=== PATIENT | female | born 1985 | race Caucasian/White ===

== ENCOUNTER 2023-07-20 08:00 | Outpatient (CLI) | payer OTHER ==
[2023-07-21 16:25] LABS: BACTERIAL VAGINOSIS DNA NEGATIVE (NEGATIVE); CANDIDA GLABRATA DNA NEGATIVE (NEGATIVE); CANDIDA GROUP DNA POSITIVE (NEGATIVE); CANDIDA KRUSEI DNA NEGATIVE (NEGATIVE); TRICHOMONAS VAGINALIS DNA NEGATIVE (NEGATIVE)
== END 2023-07-20 23:59 | disposition home or self-care (01) ==
LOC: LAB 08:00
PROVIDERS: ATTEND Family Medicine
DX: B37.9 Candidiasis, unspecified (principal)
CPT/HCPCS: 81514

== ENCOUNTER 2023-09-12 09:56 | Outpatient (CLI) | payer OTHER ==
[2023-09-12 19:08] LABS: THYROID STIMULATING HORMONE 1.69 uIU/mL (0.34-5.60)
[2023-09-12 19:13] LABS: PROLACTIN 8.98 ng/mL
[2023-09-14 23:08] LABS: ESTRADIOL 63.4 pg/mL (.)
== END 2023-09-12 09:57 | disposition home or self-care (01) ==
LOC: LAB.N 09:56
PROVIDERS: ATTEND Obstetrics & Gynecology
DX: N97.8 Female infertility of other origin (principal)
CPT/HCPCS: 36415; 82627; 82670; 83001; 83002; 83498; 84146; 84403; 84443

== ENCOUNTER 2023-09-30 19:23 | Outpatient (CLI) | payer OTHER ==
--- NOTE | 2023-10-01 08:09 | Ultrasound Report ---
PROCEDURE: Pelvic w/Transvaginal INDICATIONS: FEMALE INFERTILITY TECHNIQUE: Real-time scanning was performed of the pelvic organs, with image documentation. Additional endovagi nal scanning was necessary due to incomplete visualization of the adnexal and endometrial structures by transabdominal scanning. COMPARISON: None. FINDINGS: Uterus: Uterus is anteverted and normal in size at 9.2 x 4.7 x 6.4 cm. The myometrium is heterogene ous. The endometrium measures 11.2 mm in combined thickness. The endometrium is heterogeneous with complex cystic structure measuring 5 mm. Ovaries: The right ovary is not well seen and measures 2.5 x 1.3 x 1.1 cm, with a calculated ovarian volume of 0.5 cc. There is a 1.1 cm cyst.. The left ovary measures 3.9 x 1.9 x 4.0 cm, with a calcu lated ovarian volume of 15.5 cc. Thick-walled cyst within the left ovary measuring 2.1 x 2.0 x 1.9 cm and 2.0 x 1.5 x 2.5 cm. The ovaries have a normal sonographic appearance. Less than 12 follicles ca n be seen in each ovary. No adnexal masses are seen. No cystic lesions measuring greater than 3 cm. Other: No pathologic free abdominal or pelvic fluid. IMPRESSION: 1.Endometrium is prominent measuring 11 mm with a complex cystic structure measuring 5 mm. Recommend short-term follow-up ultrasound in 6-12 weeks to assess stability or resolution. 2.Thick-walled left ovarian cysts measuring up to 2.5 cm, likely benign and can be further evaluated on follow-up ultrasound. Reviewed by: John Cisse MD on 10/01/2023 8:08 AM PST Approved by: John Cisse MD on 10/01/2023 8:08 AM PST Station ID: [id number]
== END 2023-09-30 19:24 | disposition home or self-care (01) ==
LOC: DI 19:23
PROVIDERS: ATTEND Obstetrics & Gynecology
DX: N83.202 Unspecified ovarian cyst, left side (principal); N83.201 Unspecified ovarian cyst, right side; N97.8 Female infertility of other origin; N85.8 Other specified noninflammatory disorders of uterus

== ENCOUNTER 2023-11-17 07:43 | Day surgery (SDC) | payer OTHER ==
[~2023-11-17 07:43] MED LIST: ACETAMINOPHEN 325 MG TABLET PO ONE; LIDOCAINE-PF 2% 10 ML AMP SUBQ ONE; MIDAZOLAM 2 MG/2 ML VIAL ONE; PROPOFOL 200 MG/20 ML VIAL IVP ONE; fentaNYL 100 MCG/2 ML VIAL ONE
[2023-11-17] MEDS: LACTATED RINGERS 1,000 ML IV ONE (08:02)
[2023-11-17 08:13] LABS: HCG UR QUAL NEGATIVE
[2023-11-17 08:25] VITALS: O2SAT 100
[2023-11-17 08:27] LABS: BASOPHILS % (AUTO) 0.5 %; EOSINOPHILS # (AUTO) 0.1 10^3/uL (0.0-0.7); EOSINOPHILS % (AUTO) 1.3 %; HCT - HEMATOCRIT 40.1 % (37.0-47.0); HGB - HEMOGLOBIN 13.3 g/dL (12.0-16.0); LYMPHOCYTES # (AUTO) 1.7 10^3/uL (1.5-3.5); LYMPHOCYTES % (AUTO) 31.3 %; MEAN CORPUSCULAR HEMOGLOBIN 30.7 pg (27.0-31.0); MEAN CORPUSCULAR HGB CONC 33.2 g/dL (32.0-36.0); MEAN CORPUSCULAR VOLUME 92.6 fL (81.0-99.0); MEAN PLATELET VOLUME 9.1 fL (7.9-10.8); MONOCYTES # (AUTO) 0.4 10^3/uL (0.0-1.0); MONOCYTES % (AUTO) 7.3 %; NEUTROPHILS # (AUTO) 3.3 10^3/uL (1.5-6.6); NEUTROPHILS % (AUTO) 59.2 %; PLT - PLATELET COUNT 193 10^3/uL (130-450); RED BLOOD COUNT 4.33 10^6/uL (4.20-5.40); WHITE BLOOD COUNT 5.5 x10^3/uL (4.8-10.8)
--- NOTE | 2023-11-17 08:42 | ANESTHESIA ---
Pre-Anesthesia VS, & Labs - Diagnosis infertility, uterine polyp - Procedure D/C, POLYPECTOMY Vital Signs: Temp Pulse Resp BP Pulse Ox O2 Flow Rate 36.3 C L 73 18 120/78 100 11/17/23 08:01 11/17/23 08:01 11/17/23 08:01 11/17/23 08:01 11/17/23 08:01 Height: 5 ft 4 in Weight (kg): 78.2 kg Body Mass Index: 29.5 BMI Classification: Overweight - Is Patient ?: No - Lab Results Current Lab Results: Laboratory Tests 11/17/23 08:14: WBC 5.5, RBC 4.33, Hgb 13.3, Hct 40.1, MCV 92.6, MCH 30.7, MCHC 33.2, RDW 12.0, Plt Count 193, MPV 9.1, Neut # (Auto) 3.3, Lymph # (Auto) 1.7, [place] # (Auto) 0.4, Eos # (Auto) 0.1, Baso # (Auto) 0.0, Absolute Nucleated RBC 0.00, Nucleated RBC % 0.0 Fish Bones: 11/17/23 08:14 Home Medications and Allergies Home Medications: Ambulatory Orders Albuterol Sulfate [Proventil Hfa] 1 puffs PO Q4HR PRN 11/10/23 FLUoxetine [PROzac] 10 mg PO DAILY 11/10/23 Fexofenadine [Sneha] 60 mg PO DAILY 11/10/23 Pnv 119/Iron Fum/Folic Acid [ 19 Tablet] 1 tab PO DAILY 11/10/23 Albuterol Sulfate [Proventil Hfa] 1 puffs PO Q4HR PRN 11/10/23 FLUoxetine [PROzac] 10 mg PO DAILY 11/10/23 Fexofenadine [Sneha] 60 mg PO DAILY 11/10/23 Pnv 119/Iron Fum/Folic Acid [ 19 Tablet] 1 tab PO DAILY 11/10/23 Allergies/Adverse Reactions: Allergies Allergy/AdvReac Type Severity Reaction Status Date / Time No Known Drug Allergies Allergy Verified 11/10/23 14:03 Anes History & Medical History - Anesthetic History Anesthesia Complications: reports: No previous complications (REPORTED SOME H YPOTENSION AFTER A NASAL SURGERY, UNSURE OF ETIOLOGY) Family history of Anesthesia Complications: Denies Family history of Malignant Hyperthermia: Denies (OCCASIONAL INHALER) - Medical History Cardiovascular: reports: None Pulmonary: reports: Asthma Gastrointestinal: reports: None, Other Urinary: reports: None Musculoskeletal: reports: None Endocrine/Autoimmune: reports: None Skin: reports: None Smoking Status: Never smoker Psychosocial: reports: No issues indicated - Surgical History Gynecologic: reports: section Results - EKG Results EKG Comparison: Reviewed EKG Exam General: Alert Dental: WNL Mouth Openin Fingerbreadth Neck Mobility: Normal Mallampati classification: II Thyromental Distance: 4-6 cm Respiratory: Lungs clear Cardiovascular: Regular rate Plan Anesthesia Type: General Consent for Procedure(s) Verified and Reviewed: Yes Code Status: Attempt Resuscitation ASA classification: 2-Mild systemic disease Is this case an emergency?: No
[2023-11-17] MEDS ORDERED: ONDANSETRON 4 MG/2 ML VIAL IVP PRN ×2 (08:44→09:41)
[2023-11-17] MEDS ORDERED: ePHEDrine 50 MG/ML VIAL IVP PRN (08:44)
[2023-11-17] MEDS ORDERED: NALOXONE 0.4 MG/ML VIAL IVP PRN (08:44)
[2023-11-17] MEDS ORDERED: HYDROmorphone 0.5 MG/0.5 ML SYRINGE IVP PRN (08:44)
[2023-11-17] MEDS ORDERED: ATROPINE ABBOJECT 1 MG/10 ML SYRINGE IVP PRN (08:44)
[2023-11-17] MEDS ORDERED: fentaNYL 100 MCG/2 ML VIAL IVP PRN (08:44)
[2023-11-17] MEDS ORDERED: LACTATED RINGERS 1,000 ML IV SCH (09:00)
[2023-11-17] MEDS ORDERED: ONDANSETRON 4 MG/2 ML VIAL ONE (09:16)
[2023-11-17] MEDS ORDERED: DEXAMETHASONE 4 MG/ML VIAL ONE (09:16)
[2023-11-17] MEDS ORDERED: KETOROLAC 30 MG/ML VIAL ONE (09:36)
[2023-11-17] MEDS ORDERED: oxyCODONE 5 MG TABLET PO PRN (09:41)
--- NOTE | 2023-11-17 09:46 | OPERATIVE REPORT ---
Operative Report - General Planned Procedure: hysteroscopy D&C Pre-Op Diagnosis: endometrial polyp Procedure Performed: Hysteroscopy, D&C Post Op Diagnosis: endometrial polyp - Procedure Note Primary Surgeon: Mandi Thrasher MD Anesthesia Technique: General LMA Pathology: Endocervical and endometrial curettings. Estimated Blood Loss (mL): 5 Urine Output (mL): 0 Indications: Unable to get . ultrasound with ? endometrial polyp. here for evaluation and removal. Findings: mildly shaggy endometrial lining. both ostia visualized. no discrete polyp, but maybe something in the looser tissue. os is parous. Complications: none - Other Other Information/Narrative: procedure reviewed and consents signed. Brought to OR and LMA anesthesia administered. Legs in Yusuf stirrups. exam under anesthesia done. Prepped and draped. SCDs on. No abx. Speculum placed. cervix grasped with tenaculum. Another prep with betadine done. ECC done. Cervix dilated to allow passage of 6 mm hysteroscope. Placed and cavity examined. distended with saline. Myosure Reach used to remove looser tissue. Scope removed and sharp curettage done. Patient awakened and brought to PACU. Deficit fluid 300 cc.
[2023-11-17] MEDS: LACTATED RINGERS 100 ML IV ONE (09:47)
[2023-11-17 10:47] VITALS: BP 122/72
--- NOTE | 2023-11-17 12:20 | ANESTHESIA POST OP EVALUATION ---
Anesthesia Post Eval - Post Anesthesia Eval Vitals: Last Vital Signs Temp 36.2 C L 11/17/23 10:24 Pulse 75 11/17/23 10:24 Resp 16 11/17/23 10:24 BP 122/72 11/17/23 10:24 Pulse Ox 100 11/17/23 10:24 O2 Flow Rate CV Function Including HR & BP: Stable Pain Control: Satisfactory Nausea & Vomiting: Negative Mental Status: Baseline Respiratory Status: Airway Patent Hydration Status: Satisfactory Anesthesia Complications: None
== END 2023-11-17 07:44 | disposition home or self-care (01) ==
LOC: SDS 07:43
PROVIDERS: ATTEND Obstetrics & Gynecology
PROC: 0UDB8ZZ Extraction of Endometrium, Via Natural or Artificial Opening Endoscopic (ICD-10-PCS; principal; 2023-11-17 09:00)
DX: N84.0 Polyp of corpus uteri (principal); R93.89 Abnormal findings on diagnostic imaging of other specified body structures; J45.909 Unspecified asthma, uncomplicated
CPT/HCPCS: 58558; 81025; 85025; A9270; J7120

== ENCOUNTER 2024-04-28 08:00 | Outpatient (CLI) | payer OTHER | END 2024-04-28 23:59 | disposition home or self-care (01) | LOC: LAB.N 08:00 | PROVIDERS: ATTEND Physician Assistant Medical | DX: N30.00 Acute cystitis without hematuria (principal) | CPT/HCPCS: 87077; 87086; 87181 ==